=== PATIENT | female | born 1965 | race Caucasian/White ===

== ENCOUNTER 2016-05-06 20:01 | Emergency (ER) | payer BC ==
--- NOTE | 2016-05-06 20:23 | Emergency Department Record ---
History of Present Illness - General Chief Complaint: Headache Migraine Stated Complaint: PARISI Time Seen by Provider: 05/06/16 20:14 Source: Patient Mode of Arrival: Ambulatory Limitations: No limitations - History of Present Illness Initial Comments: 51 yo female presents to ED with a CC of a "migraine headache" for the past several days. Patient reports associated nausea and vomiting symptoms, reports that she has not taken anything at home for her pain symptoms (has [place], but reports it won't work when her pain gets to "this point"). Patient reports that recently underwent revision of her neuro-stimulator that she uses for her chronic migraine headaches (February 2016). Patient denies fevers, chills, but does report non-productive cough and body aches. Patient denies neck pain symptoms as well. MD Complaint: Headache Onset/Timin -: Days(s) Onset Description: Gradual Location: Diffuse Severity scale (1-10): 10 Quality: Similar to previous headaches Consistency: Constant Improves With: Cold therapy, Rest Worsens With: None Associated Symptoms: Nausea Treatments Prior to Arrival: None - Related Data Home Medications Medication Instructions Recorded Confirmed Last Taken Estradiol/Norethindrone Acet 05/06/16 Unknown [Estradiol-Noreth 1-0.5 mg Tab] Fluticasone Propionate [Flonase] 05/06/16 Unknown Hydrocodone/Acetaminophen 05/06/16 05/06/16 Unknown [Hydrocodon-Acetaminophn 10-325] Ondansetron HCl [Ondansetron HCl] 05/06/16 Unknown Venlafaxine HCl [Effexor Xr] 05/06/16 Unknown Allergies Allergy/AdvReac Type Severity Reaction Status Date / Time Sulfa (Sulfonamide Allergy HIVES Verified 05/06/16 20:06 Antibiotics) Travel Screening - Travel/Exposure Within Last 30 Days Have you traveled within the last 30 days?: No - Travel/Exposure Within Last Year Have you traveled outside the [place] in the last year?: No - Additonal Travel Details Have you been exposed to anyone with a communicable illness?: No - Travel Symptoms Symptom Screening: None Review of Systems Constitutional: Reports: Malaise. Denies: Chills, Fever, Night sweats Eyes: Denies: Eye discharge, Eye pain ENT: Reports: Congestion. Denies: Ear pain, Epistaxis, Throat pain Respiratory: Reports: Cough. Denies: Dyspnea Cardiovascular: Denies: Chest pain, Dyspnea on exertion Endocrine: Denies: Fatigue, Heat or cold intolerance Gastrointestinal: Reports: Nausea, Vomiting. Denies: Abdominal pain Musculoskeletal: Denies: Arthralgia, Back pain, Neck pain Skin: Denies: Bruising, Change in color Neurological: Reports: Headache. Denies: Abnormal gait, Confusion, Seizure Psychiatric: Denies: Anxiety Hematological/Lymphatic: Denies: Anemia, Blood Clots Past Medical History - SOCIAL HISTORY Smoking Status: Never smoker Alcohol Use: Rare Drug Use: None - RESPIRATORY Hx Respiratory Disorders: No - CARDIOVASCULAR Hx Cardio Disorders: No - NEURO Hx Neuro Disorders: Yes Hx Headaches: Yes - GI Hx GI Disorders: Yes Hx Reflux: Yes - Hx Genitourinary Disorders: No - ENDOCRINE Hx Endocrine Disorders: No - MUSCULOSKELETAL Hx Musculoskeletal Disorders: Yes - PSYCH Hx Psych Problems: No - HEMATOLOGY/ONCOLOGY Hx Hematology/Oncology Disorders: No Family Medical History Any Significant Family History?: No Physical Exam - General General Appearance: Alert, Oriented x3, Cooperative, Mild distress Limitations: No limitations - Head Head exam: Atraumatic, Normocephalic, Normal inspection Head exam detail: negative: Abrasion, Contusion, Hood's sign, General tenderness, Hematoma, Laceration - Eye Eye exam: Normal appearance. negative: Conjunctival injection, Periorbital swelling, Periorbital tenderness, Scleral icterus - ENT Ear exam: negative: Auricular hematoma, Auricular trauma Nasal Exam: negative: Active bleeding, Discharge, Dried blood, Foreign body Mouth exam: negative: Drooling, Laceration, Muffled voice, Tongue elevation - Neck Neck exam: Normal inspection. negative: Meningismus, Tenderness - Respiratory Respiratory exam: Normal lung sounds bilaterally. negative: Respiratory distress, Rhonchi, Stridor, Wheezes - Cardiovascular Cardiovascular Exam: Regular rate, Normal rhythm, Normal heart sounds - GI/Abdominal GI/Abdominal exam: Soft. negative: Rebound, Rigid, Tenderness - Rectal Rectal exam: Deferred - exam: Deferred - Extremities Extremities exam: Normal inspection. negative: Calf tenderness, Pedal edema, Tenderness - Back Back exam: Reports: Normal inspection. Denies: CVA tenderness (R), CVA tenderness (L), Paraspinal tenderness - Neurological Neurological exam: Alert, Normal gait, Oriented X3 - Psychiatric Psychiatric exam: Normal affect, Normal mood - Skin Skin exam: Normal color. negative: Abrasion Type of lesion: negative: abrasion Course Vital Signs 05/06/16 20:05 Temperature 99.4 F Pulse Rate 107 H Respiratory 18 Rate Blood Pressure 160/91 Pulse Ox 97 - Reevaluation(s) Reevaluation #1: 05/06/16 21:24 Patient updated on influenza results, reports that her symptoms are improved ( down to 4/10). Patient has no meningeal signs on examination, and appears stable for discharge at this time. Disposition Disposition: Discharge Clinical Impression: Headache Qualifiers: Headache type: unspecified Headache chronicity pattern: acute headache Intractability: not intractable Qualified Code(s): R51 - Headache Disposition: Home, Self-Care Condition: (2) Stable Instructions: Acute Headache (ED) Additional Instructions: Return to ED if your symptoms worsen or if you have any concerns. Follow-up with your family doctor in 3-5 days as directed. Forms: Patient Portal Access Time of Disposition: 21:26
[2016-05-06] MEDS: 0.9 % SODIUM CHLORIDE 1000ML 1,000 ML IV SCH (20:32)
[2016-05-06] MEDS: DIPHENHYDRAMINE HCL IV 50 MG/ML VIAL IVP ONE (20:33)
[2016-05-06] MEDS: METOCLOPRAMIDE HCL 10 MG/2 ML VIAL IVP ONE (20:34)
[2016-05-06] MEDS: KETOROLAC 30 MG/ML VIAL IVP ONE (20:36)
[2016-05-06 20:59] LABS: INFLUENZA A NEGATIVE (NEGATIVE); INFLUENZA B NEGATIVE (NEGATIVE)
== END 2016-05-06 22:10 | disposition home or self-care (01) ==
LOC: ER 20:01
DX: R51 Headache (principal); R11.2 Nausea with vomiting, unspecified
CPT/HCPCS: 99284 ×2; 96374; 96375; 96361; 87400; J1885; J1200; J2765; J7030

== ENCOUNTER 2016-07-05 19:19 | Emergency (ER) | payer BC ==
[2016-07-05] MEDS ORDERED: METOCLOPRAMIDE HCL 10 MG/2 ML VIAL IVP ONE (19:44)
[2016-07-05] MEDS ORDERED: KETOROLAC 30 MG/ML VIAL IVP ONE (19:44)
[2016-07-05] MEDS ORDERED: DIPHENHYDRAMINE HCL IV 50 MG/ML VIAL IVP ONE (19:44)
[2016-07-05] MEDS ORDERED: 0.9 % SODIUM CHLORIDE 1000ML 1,000 ML IV SCH (19:45)
--- NOTE | 2016-07-05 19:53 | Emergency Department Record ---
History of Present Illness - General Chief Complaint: Headache Migraine Stated Complaint: PARISI Time Seen by Provider: 07/05/16 19:44 Source: Patient Mode of Arrival: Ambulatory Limitations: No limitations - History of Present Illness Initial Comments: 51 yo female presents to ED with a 24-hours history of migraine-type headache. Patient reports a history of previous episodes previously, has taken Tramadol x 2 for her pain symptoms at home which have not helped much. Patient reports nausea and vomiting started this afternoon, denies fevers, chills, or neck pain symptoms. MD Complaint: Headache Onset/Timin -: Days(s) Onset Description: Gradual Location: Diffuse Severity: Severe Severity scale (1-10): 10 Quality: Throbbing Consistency: Constant Improves With: Nothing Worsens With: Light Associated Symptoms: Nausea, Vomiting - Related Data Home Medications Medication Instructions Recorded Confirmed Last Taken Estradiol/Norethindrone Acet 1 tab PO DAILY 05/06/16 07/05/16 Unknown [Estradiol-Noreth 1-0.5 mg Tab] Fluticasone Propionate [Flonase] 1 spray NS DAILY 05/06/16 07/05/16 Unknown Ondansetron HCl [Ondansetron HCl] 8 mg PO DAILY 05/06/16 07/05/16 Unknown Tramadol HCl [Tramadol HCl ER] 200 mg PO DAILY 07/05/16 07/05/16 Unknown Allergies Allergy/AdvReac Type Severity Reaction Status Date / Time Sulfa (Sulfonamide Allergy HIVES Verified 05/06/16 20:06 Antibiotics) Travel Screening - Travel/Exposure Within Last 30 Days Have you traveled within the last 30 days?: No Review of Systems Constitutional: Denies: Chills, Fever, Malaise, Night sweats Eyes: Reports: Photophobia. Denies: Eye discharge, Eye pain ENT: Denies: Congestion, Ear pain, Epistaxis Respiratory: Denies: Cough, Dyspnea Cardiovascular: Denies: Chest pain, Dyspnea on exertion Endocrine: Denies: Fatigue, Heat or cold intolerance Gastrointestinal: Reports: Nausea, Vomiting. Denies: Abdominal pain, Constipation Genitourinary: Denies: Dysuria, Frequency Musculoskeletal: Denies: Arthralgia, Back pain, Gout, Joint swelling Skin: Denies: Bruising, Change in color Neurological: Reports: Headache. Denies: Abnormal gait, Confusion, Seizure Psychiatric: Denies: Anxiety Hematological/Lymphatic: Denies: Anemia, Blood Clots Past Medical History - SOCIAL HISTORY Smoking Status: Never smoker Alcohol Use: None Drug Use: None - RESPIRATORY Hx Respiratory Disorders: No - CARDIOVASCULAR Hx Cardio Disorders: No - NEURO Hx Neuro Disorders: Yes Hx Headaches: Yes - GI Hx GI Disorders: Yes Hx Reflux: Yes - Hx Genitourinary Disorders: No - ENDOCRINE Hx Endocrine Disorders: No - MUSCULOSKELETAL Hx Musculoskeletal Disorders: Yes - PSYCH Hx Psych Problems: No - HEMATOLOGY/ONCOLOGY Hx Hematology/Oncology Disorders: No Family Medical History Any Significant Family History?: No Physical Exam - General General Appearance: Alert, Oriented x3, Cooperative, Moderate distress Limitations: No limitations - Head Head exam: Atraumatic, Normocephalic, Normal inspection Head exam detail: negative: Abrasion, Contusion, Hood's sign, General tenderness, Hematoma, Laceration - Eye Eye exam: Normal appearance. negative: Conjunctival injection, Periorbital swelling, Periorbital tenderness, Scleral icterus - ENT Ear exam: negative: Auricular hematoma, Auricular trauma Nasal Exam: negative: Active bleeding, Discharge, Dried blood, Foreign body Mouth exam: negative: Drooling, Laceration, Muffled voice, Tongue elevation - Neck Neck exam: Normal inspection. negative: Meningismus, Tenderness - Respiratory Respiratory exam: Normal lung sounds bilaterally. negative: Rales, Respiratory distress, Rhonchi, Stridor - Cardiovascular Cardiovascular Exam: Regular rate, Normal rhythm, Normal heart sounds - GI/Abdominal GI/Abdominal exam: Soft. negative: Rebound, Rigid, Tenderness - Rectal Rectal exam: Deferred - exam: Deferred - Extremities Extremities exam: Normal inspection. negative: Calf tenderness, Pedal edema, Tenderness - Back Back exam: Denies: CVA tenderness (R), CVA tenderness (L) - Neurological Neurological exam: Alert, Normal gait, Oriented X3 - Psychiatric Psychiatric exam: Normal affect, Normal mood - Skin Skin exam: Normal color. negative: Abrasion Type of lesion: negative: abrasion Course Vital Signs 07/05/16 19:40 Temperature 97.6 F Pulse Rate 87 Respiratory 18 Rate Blood Pressure 105/82 Pulse Ox 99 - Reevaluation(s) Reevaluation #1: 07/05/16 20:49 Patient reassessed, reports that her pain symptoms are down to 2/10 and appears stable for discharge at this time. Disposition Disposition: Discharge Clinical Impression: Headache Qualifiers: Headache type: unspecified Headache chronicity pattern: acute headache Intractability: not intractable Qualified Code(s): R51 - Headache Disposition: Home, Self-Care Condition: (2) Stable Instructions: Acute Headache (ED) Additional Instructions: Return to ED if your symptoms worsen or if you have any concerns. Follow-up with your family doctor in 3-5 days as directed. Forms: Patient Portal Access Time of Disposition: 20:50
== END 2016-07-05 21:32 | disposition home or self-care (01) ==
LOC: ER 19:19
DX: R51 Headache (principal); R11.2 Nausea with vomiting, unspecified
CPT/HCPCS: 99284 ×2; 96374; 96375; J1885; J1200; J2765; J7030

== ENCOUNTER 2016-10-11 12:30 | Emergency (ER) | payer BC ==
[2016-10-11] MEDS ORDERED: METOCLOPRAMIDE HCL 10 MG/2 ML VIAL IVP ONE (12:49)
[2016-10-11] MEDS ORDERED: KETOROLAC 30 MG/ML VIAL IVP ONE (12:49)
[2016-10-11] MEDS ORDERED: DIPHENHYDRAMINE HCL IV 50 MG/ML VIAL IVP ONE (12:49)
--- NOTE | 2016-10-11 12:54 | Emergency Department Record ---
History of Present Illness - General Chief Complaint: Headache Migraine Stated Complaint: HEADACHE Time Seen by Provider: 10/11/16 12:31 Source: Patient Mode of Arrival: Ambulatory Limitations: No limitations - History of Present Illness Initial Comments: 51 yo female presents to ED with a CC of a "migraine headache" for the past 10 days. Patient reports chronic headaches that are improved as the patient is now taking Tramadol 200 mcg daily for prevention. Patient reports that her headache symptoms are similar to previous, denies fevers, chills, or neck pain symptoms. MD Complaint: Headache Onset/Timin -: Days(s) Onset Description: Gradual Location: Facial, Temporal Severity: Moderate Severity scale (1-10): 9 Quality: Throbbing Consistency: Constant Improves With: Nothing Worsens With: Light, Noise Associated Symptoms: Photophobia, Sensitivity to sound Treatments Prior to Arrival: Migraine medication, Prescription analgesic - Related Data Home Medications Medication Instructions Recorded Confirmed Last Taken Estradiol/Norethindrone Acet 1 tab PO DAILY 05/06/16 10/11/16 10/11/16 [Estradiol-Noreth 1-0.5 mg Tab] Fluticasone Propionate [Flonase] 1 spray NS DAILY 05/06/16 10/11/16 10/11/16 Ondansetron HCl [Ondansetron HCl] 8 mg PO DAILY 05/06/16 10/11/16 10/11/16 Tramadol HCl [Tramadol HCl ER] 200 mg PO DAILY 07/05/16 10/11/16 10/11/16 Clobetasol Propionate/Emoll 1 apply TOP ASDIR 10/11/16 10/11/16 Unknown [Clobetasol Emollient 0.05% Crm] Ketorolac Tromethamine 10 mg PO ASDIR 10/11/16 10/11/16 Unknown Melatonin 10 mg PO QHS 10/11/16 10/11/16 10/10/16 Allergies Allergy/AdvReac Type Severity Reaction Status Date / Time Sulfa (Sulfonamide Allergy HIVES Verified 10/11/16 12:37 Antibiotics) Travel Screening - Travel/Exposure Within Last 30 Days Have you traveled within the last 30 days?: No - Travel/Exposure Within Last Year Have you traveled outside the [place] in the last year?: Yes Location Detail:: [place] in July - Additonal Travel Details Have you been exposed to anyone with a communicable illness?: No - Travel Symptoms Symptom Screening: None Review of Systems Constitutional: Denies: Chills, Fever, Malaise, Night sweats Eyes: Denies: Eye discharge, Eye pain ENT: Denies: Congestion, Ear pain, Epistaxis Respiratory: Denies: Cough, Dyspnea Cardiovascular: Denies: Dyspnea on exertion, Edema Endocrine: Denies: Fatigue, Heat or cold intolerance Gastrointestinal: Denies: Abdominal pain, Vomiting Genitourinary: Denies: Incontinence, Retention Musculoskeletal: Denies: Arthralgia, Back pain Skin: Denies: Bruising, Change in color Neurological: Reports: Headache. Denies: Abnormal gait, Numbness Psychiatric: Denies: Anxiety Hematological/Lymphatic: Denies: Anemia, Blood Clots Past Medical History - SOCIAL HISTORY Smoking Status: Never smoker Alcohol Use: Rare Drug Use: None - RESPIRATORY Hx Respiratory Disorders: No - CARDIOVASCULAR Hx Cardio Disorders: No - NEURO Hx Neuro Disorders: Yes Hx Headaches: Yes - GI Hx GI Disorders: Yes Hx Reflux: Yes - Hx Genitourinary Disorders: No - ENDOCRINE Hx Endocrine Disorders: No - MUSCULOSKELETAL Hx Musculoskeletal Disorders: Yes - PSYCH Hx Psych Problems: No - HEMATOLOGY/ONCOLOGY Hx Hematology/Oncology Disorders: No Family Medical History Any Significant Family History?: No Physical Exam - General General Appearance: Alert, Oriented x3, Cooperative, Moderate distress Limitations: No limitations - Head Head exam: Atraumatic, Normocephalic, Normal inspection Head exam detail: negative: Abrasion, Contusion, Hood's sign, General tenderness, Hematoma, Laceration - Eye Eye exam: Normal appearance. negative: Conjunctival injection, Periorbital swelling, Periorbital tenderness, Scleral icterus - ENT Ear exam: negative: Auricular hematoma, Auricular trauma Nasal Exam: negative: Active bleeding, Discharge, Dried blood, Foreign body Mouth exam: negative: Drooling, Laceration, Muffled voice, Tongue elevation - Neck Neck exam: Normal inspection. negative: Meningismus, Tenderness - Respiratory Respiratory exam: Normal lung sounds bilaterally. negative: Respiratory distress, Rhonchi, Stridor, Wheezes - Cardiovascular Cardiovascular Exam: Regular rate, Normal rhythm, Normal heart sounds - GI/Abdominal GI/Abdominal exam: Soft. negative: Rebound, Rigid, Tenderness - Rectal Rectal exam: Deferred - exam: Deferred - Extremities Extremities exam: negative: Calf tenderness, Tenderness - Back Back exam: Denies: CVA tenderness (R), CVA tenderness (L) - Neurological Neurological exam: Alert, Normal gait, Oriented X3 - Psychiatric Psychiatric exam: Normal affect, Normal mood - Skin Skin exam: Normal color. negative: Abrasion Type of lesion: negative: abrasion Course Vital Signs 10/11/16 12:42 Temperature 98.5 F Pulse Rate 103 H Respiratory 20 Rate Blood Pressure 168/104 Pulse Ox 99 - Reevaluation(s) Reevaluation #1: 10/11/16 14:29 Patient reassessed and reports that her pain symptoms are improved to 4/10 at this time. Patient appears stable for discharge at this time. Disposition Disposition: Discharge Clinical Impression: Acute headache Qualifiers: Headache type: unspecified Intractability: not intractable Qualified Code(s): R51 - Headache Disposition: Home, Self-Care Condition: (2) Stable Instructions: Acute Headache (ED) Additional Instructions: Return to ED if your symptoms worsen or if you have any concerns. Follow-up with your family doctor in 3-5 days as directed. Forms: Patient Portal Access Time of Disposition: 14:30
[2016-10-11] MEDS ORDERED: 0.9 % SODIUM CHLORIDE 1000ML 1,000 ML IV SCH (13:00)
== END 2016-10-11 14:57 | disposition home or self-care (01) ==
LOC: ER 12:30
DX: R51 Headache (principal); H53.149 Visual discomfort, unspecified
CPT/HCPCS: 99284 ×2; 96374; 96375; J1885; J1200; J2765; J7030

== ENCOUNTER 2018-12-10 18:07 | Emergency (ER) | payer BC ==
[2018-12-10] MEDS ORDERED: KETOROLAC 30 MG/ML VIAL IVP ONE (18:25)
[2018-12-10] MEDS ORDERED: DIPHENHYDRAMINE HCL 50 MG/ML VIAL IVP ONE (18:25)
[2018-12-10] MEDS ORDERED: 0.9 % SODIUM CHLORIDE 1,000 ML BAG IV ONE (18:25)
[2018-12-10] MEDS ORDERED: METOCLOPRAMIDE HCL 10 MG/2 ML VIAL IVP ONE (18:25)
--- NOTE | 2018-12-10 18:27 | Emergency Department Record ---
History of Present Illness - General Chief Complaint: Headache Migraine Stated Complaint: MIGRAINE Time Seen by Provider: 12/10/18 18:09 Source: Patient, RN notes reviewed Mode of Arrival: Ambulatory - History of Present Illness Initial Comments: patient has a migraine Dr at [facility] Scales and this headache started 2 weeks ago. Also has abdomenal pain and no vomiting or diarrhea and the migraine is her typical. epigastric abdominal pain but her migraine is the biggest pro blem. MD Complaint: "Migraine" Onset Description: Gradual Location: Diffuse Severity: Moderate Severity scale (1-10): 8 Quality: Different than previous headaches Consistency: Constant Improves With: Nothing Worsens With: None Context: Other Associated Symptoms: Other Treatments Prior to Arrival: None - Related Data Home Medications Medication Instructions Recorded Confirmed Last Taken Alprazolam [Xanax] 0.5 mg PO ASDIR 12/10/18 12/10/18 Unknown Bupropion HCl [Wellbutrin Xl] 300 mg PO DAILY 12/10/18 12/10/18 Unknown Butalb/Acetaminophen/Caffeine 1 each PO ASDIR 12/10/18 12/10/18 Unknown [Fioricet] Erenumab-Aooe [Aimovig 140 mg SQ ASDIR 12/10/18 12/10/18 Unknown Autoinjector] Hydroxyzine HCl [Atarax] 25 mg PO ASDIR 12/10/18 12/10/18 Unknown Methocarbamol [Robaxin] 500 mg PO TID 12/10/18 12/10/18 Unknown Omeprazole 20 mg PO DAILY 12/10/18 12/10/18 Unknown Promethazine HCl [Phenergan] 25 mg PO ASDIR 12/10/18 12/10/18 Unknown Venlafaxine HCl [Effexor Xr] 300 mg PO DAILY 12/10/18 12/10/18 Unknown Allergies Allergy/AdvReac Type Severity Reaction Status Date / Time Sulfa (Sulfonamide Allergy HIVES Unverified 01/28/17 12:49 Antibiotics) Travel Screening - Travel/Exposure Within Last 30 Days Have you traveled within the last 30 days?: No Review of Systems Reviewed: No additional complaints except as noted below Constitutional: Reports: As per HPI. Denies: Chills, Fever, Malaise, Night sweats, Weakness, Weight change Eyes: Reports: As per HPI. Denies: Eye discharge, Eye pain, Photophobia, Vision change ENT: Reports: As per HPI. Denies: Congestion, Dental pain, Ear pain, Epistaxis, Hearing loss, Throat pain Respiratory: Reports: As per HPI. Denies: Cough, Dyspnea, Hemoptysis, Stridor, Wheezes Cardiovascular: Reports: As per HPI. Denies: Arrhythmia, Chest pain, Dyspnea on exertion, Edema, Murmurs, Orthopnea, Palpitations, Paroxysmal nocturnal dyspnea, Rheumatic Fever, Syncope Endocrine: Reports: As per HPI. Denies: Fatigue, Heat or cold intolerance, Polydipsia, Polyuria Gastrointestinal: Reports: As per HPI, Abdominal pain. Denies: Constipation, Diarrhea, Hematemesis, Hematochezia, Melena, Nausea, Vomiting Genitourinary: Reports: As per HPI. Denies: Abnormal menses, Discharge, Dyspareunia, Dysuria, Frequency, Hematuria, Incontinence, Retention, Urgency Musculoskeletal: Reports: As per HPI. Denies: Arthralgia, Back pain, Gout, Joint swelling, Myalgia, Neck pain Skin: Reports: As per HPI. Denies: Bruising, Change in color, Change in hair/nails, Lesions, Pruritus, Rash Neurological: Reports: As per HPI. Denies: Abnormal gait, Confusion, Headache, Numbness, Paresthesias, Seizure, Tingling, Tremors, Vertigo, Weakness Psychiatric: Reports: As per HPI. Denies: Anxiety, Auditory hallucinations, Depression, Homicidal thoughts, Suicidal thoughts, Visual hallucinations Hematological/Lymphatic: Reports: As per HPI. Denies: Anemia, Blood Clots, Easy bleeding, Easy bruising, Swollen glands Past Medical History - SOCIAL HISTORY Smoking Status: Never smoker - RESPIRATORY Hx Respiratory Disorders: No - CARDIOVASCULAR Hx Cardio Disorders: No - NEURO Hx Neuro Disorders: Yes Hx Headaches: Yes - GI Hx GI Disorders: Yes Hx Reflux: Yes - Hx Genitourinary Disorders: No - ENDOCRINE Hx Endocrine Disorders: No - MUSCULOSKELETAL Hx Musculoskeletal Disorders: Yes - PSYCH Hx Psych Problems: No - HEMATOLOGY/ONCOLOGY Hx Hematology/Oncology Disorders: No Family Medical History Any Significant Family History?: No Physical Exam - General General Appearance: Alert, Oriented x3, Cooperative, No acute distress - Head Head exam: Normal inspection - Eye Eye exam: Normal appearance, PERRL Pupils: Normal accommodation - ENT ENT exam: Normal exam, Mucous membranes moist, Normal external ear exam, Normal orophraynx, TM's normal bilaterally Ear exam: Normal external inspection. negative: External canal tenderness Nasal Exam: Normal inspection. negative: Discharge, Sinus tenderness Mouth exam: Normal external inspection, Tongue normal Teeth exam: Normal inspection. negative: Dental caries Throat exam: Normal inspection. negative: Tonsillar erythema, Tonsillar exudate - Neck Neck exam: Normal inspection, Full ROM. negative: Tenderness - Respiratory Respiratory exam: Normal lung sounds bilaterally. negative: Respiratory distress - Cardiovascular Cardiovascular Exam: Regular rate, Normal rhythm, Normal heart sounds - GI/Abdominal GI/Abdominal exam: Soft, Normal bowel sounds, Tenderness (mild discomfort on pa lpation). negative: Guarding, Rebound, Rigid - Rectal Rectal exam: Deferred - exam: Deferred - Extremities Extremities exam: Normal inspection, Full ROM, Normal capillary refill. negative: Tenderness - Back Back exam: Reports: Normal inspection, Full ROM. Denies: Muscle spasm, Rash noted, Tenderness - Neurological Neurological exam: Alert, Normal gait, Oriented X3, Reflexes normal - Psychiatric Psychiatric exam: Normal affect, Normal mood - Skin Skin exam: Dry, Intact, Normal color, Warm Course Vital Signs 12/10/18 18:10 Temperature 98.2 F Pulse Rate 111 H Respiratory 18 Rate Blood Pressure 158/99 Pulse Ox 96 - Reevaluation(s) Reevaluation #1: feeling better 12/10/18 19:22 Medical Decision Making - Lab Data Result diagrams: 12/10/18 18:50 12/10/18 18:50 Disposition Clinical Impression: Migraine Qualifiers: Migraine type: without aura Status migrainosus presence: without status migrainosus Intractability: not intractable Qualified Code(s): G43.009 - Migraine without aura, not intractable, without status migrainosus Abdominal pain Qualifiers: Abdominal location: epigastric Qualified Code(s): R10.13 - Epigastric pain Disposition: Home, Self-Care Condition: (1) Good Instructions: Migraine Headache (ED), Abdominal Pain (ED), Gastritis (ED) Additional Instructions: follow up with her headache Dr at [facility] in one week follow up with family Dr in 2 days clear liquids and slowly increase diet increase omeprazole to twice a day use tums three pills after meals and bed time Forms: Patient Portal Access Time of Disposition: 18:46 Quality - Quality Measures Quality Measures: Headache (All Ages) - Headache: Neuroimaging Quality Measure: Measure #419: Overuse of Neuroimaging ICD10 Codes Entered: Yes Neurological Exam: Patient had a normal neurological exam. [G9535] Headache: Use of Neuroimaging: < CTA, CT, MRA or MRI was NOT ordered > [G9534] - Blood Pressure Screening Does Patient Have Any of the Following: No Blood Pressure Classification: Hypertensive Reading Systolic Measurement: 158 Diastolic Measurement: 99 Screening for High Blood Pressure: < First Hypertensive BP, F/U Documented > [G8950] First Hypertensive Follow-up Interventions: Referral to alternative/primary care provider.
[2018-12-10] MEDS ORDERED: PANTOPRAZOLE SODIUM 40 MG TABLET PO ONE (18:29)
[2018-12-10 19:06] LABS: ABSOLUTE NEUTROPHIL COUNT 7.37; BASO % 0.1 % (0-6); EOS % 0.3 % (0-6); GRAN % 74.3 % (47-80); HEMATOCRIT 43.7 % (35.0-47.0); HEMOGLOBIN 14.4 gm/dl (11.6-16.0); LYMPH % 18.9 % (16-45); MEAN CELL VOLUME 89.2 fl (81-97); MEAN CORPUSCULAR HEMOGLOBIN 29.4 pg (27-33); MEAN PLATELET VOLUME 8.3 fl (7.4-10.4); MONO % 6.4 % (0-9); PLATELET COUNT 388 K/uL (130-400); RED CELL DISTRIBUTION WIDTH 13.7 % (11.5-14.5); WHITE BLOOD COUNT W/O DIFF 9.9 K/uL (4.2-12.2)
[2018-12-10 19:17] LABS: BLOOD UREA NITROGEN 16 mg/dL (6-20)
[2018-12-10 19:18] LABS: CREATININE 0.7 mg/dL (0.5-0.9); EST GLOMERULAR FILTRATION RATE > 60 mL/min; LIPASE 39 U/L (13-60); TOTAL PROTEIN 7.2 g/dL (6.6-8.7)
[2018-12-10 19:20] LABS: GLUCOSE,RANDOM 99 mg/dL (74-109)
[2018-12-10 19:23] LABS: ALBUMIN 4.6 g/dL (4.0-5.0); ALKALINE PHOSPHATASE 93 U/L (35-104); ALT/SGPT 19 U/L (<33); AST/SGOT 17 U/L (10.0-35.0)
[2018-12-10 19:31] LABS: BILIRUBIN,DIRECT < 0.2 mg/dL (0-0.3)
== END 2018-12-10 19:31 | disposition home or self-care (01) ==
LOC: ER 18:07
DX: G43.909 Migraine, unspecified, not intractable, without status migrainosus (principal); R10.13 Epigastric pain
CPT/HCPCS: 99285 ×2; 96374; 96375; 96361; 83690; 85025; 80076; 80048; J1885; J1200; J2765; J7030

== ENCOUNTER 2018-12-21 16:11 | Emergency (ER) | payer BC ==
[2018-12-21] MEDS ORDERED: KETOROLAC 30 MG/ML VIAL IVP ONE (17:03)
[2018-12-21] MEDS ORDERED: DIPHENHYDRAMINE HCL 50 MG/ML VIAL IVP ONE (17:03)
[2018-12-21] MEDS ORDERED: METOCLOPRAMIDE HCL 10 MG/2 ML VIAL IVP ONE (17:03)
[2018-12-21] MEDS ORDERED: 0.9 % SODIUM CHLORIDE 1,000 ML BAG IV ONE (17:03)
--- NOTE | 2018-12-21 17:08 | Emergency Department Record ---
History of Present Illness - General Chief Complaint: Headache Migraine Stated Complaint: MIGRAINE Time Seen by Provider: 12/21/18 17:00 Source: Patient, Family Mode of Arrival: Ambulatory Limitations: No limitations - History of Present Illness Initial Comments: The patient is here due to a worsening migraine PARISI over the last few days. She has a LONG hx of similar PARISI's and is never pain free. Now the pain is worsening gradually. It feels like shocks to her brain associated with nausea but no vomiting. She does have mild blurred vision and photophobia. The patient does have a LONG hx of similar PARISI's exactly like this and does have a PARISI specialist at [facility] [place]. Complaint: Headache Onset/Timin -: Days(s) Onset Description: Gradual Severity scale (1-10): 8 Quality: Similar to previous headaches Improves With: Nothing Worsens With: None Associated Symptoms: Nausea, Photophobia, Sensitivity to sound Treatments Prior to Arrival: Migraine medication - Related Data Allergies Allergy/AdvReac Type Severity Reaction Status Date / Time Sulfa (Sulfonamide Allergy HIVES Unverified 01/28/17 12:49 Antibiotics) Travel Screening - Travel/Exposure Within Last 30 Days Have you traveled within the last 30 days?: No - Travel/Exposure Within Last Year Have you traveled outside the [place] in the last year?: No - Additonal Travel Details Have you been exposed to anyone with a communicable illness?: No - Travel Symptoms Symptom Screening: Headache Review of Systems Constitutional: Denies: Chills, Fever Eyes: Denies: Eye discharge ENT: Denies: Congestion Respiratory: Denies: Cough, Dyspnea Past Medical History - SOCIAL HISTORY Smoking Status: Never smoker Alcohol Use: None Drug Use: None - RESPIRATORY Hx Respiratory Disorders: No - CARDIOVASCULAR Hx Cardio Disorders: No - NEURO Hx Neuro Disorders: Yes Hx Headaches: Yes - GI Hx GI Disorders: Yes Hx Reflux: Yes - Hx Genitourinary Disorders: No - ENDOCRINE Hx Endocrine Disorders: No - MUSCULOSKELETAL Hx Musculoskeletal Disorders: Yes - PSYCH Hx Psych Problems: No - HEMATOLOGY/ONCOLOGY Hx Hematology/Oncology Disorders: No Family Medical History Any Significant Family History?: No Physical Exam - General General Appearance: Alert, Oriented x3, Cooperative, Mild distress - Head Head exam: Atraumatic, Normocephalic, Normal inspection - Eye Eye exam: Normal appearance, PERRL. negative: Conjunctival injection, Periorbital swelling, Periorbital tenderness - ENT Throat exam: Normal inspection. negative: Tonsillar erythema, Tonsillar exudate - Neck Neck exam: Normal inspection, Full ROM. negative: Meningismus (the neck is very supple.), Tenderness - Respiratory Respiratory exam: Normal lung sounds bilaterally. negative: Respiratory distress - Cardiovascular Cardiovascular Exam: Regular rate, Normal rhythm, Normal heart sounds - GI/Abdominal GI/Abdominal exam: Soft, Normal bowel sounds. negative: Tenderness - Extremities Extremities exam: Normal inspection, Full ROM, Normal capillary refill. negative: Tenderness - Neurological Neurological exam: Alert, Normal gait, Oriented X3, Other (Neg Drift and [place]om[place].). negative: Abnormal gait, Altered, Motor sensory deficit Course Vital Signs 12/21/18 16:36 Temperature 98.4 F Pulse Rate 96 H Respiratory 20 Rate Blood Pressure 147/92 Pulse Ox 98 - Reevaluation(s) Reevaluation #1: The patient is doing better at this time. Her pain is now down to her chronic pain level. She feels ready for home. 12/21/18 18:32 Disposition Disposition: Discharge Clinical Impression: Migraine Qualifiers: Migraine type: unspecified Status migrainosus presence: without status migrainosus Intractability: not intractable Qualified Code(s): G43.909 - Migraine, unspecified, not intractable, without status migrainosus Disposition: Home, Self-Care Condition: (2) Stable Instructions: Migraine Headache (ED) Additional Instructions: Please continue your regular medicines and please see your Headache Specialist later this week for recheck. Return to the ER for any worsening symptoms. Forms: Patient Portal Access Time of Disposition: 18:34 Quality - Quality Measures Quality Measures: Headache (All Ages) - Headache: Neuroimaging Quality Measure: Measure #419: Overuse of Neuroimaging ICD10 Codes Entered: Yes View Detail: Yes Neurological Exam: Patient had a normal neurological exam. [G9535] Headache: Use of Neuroimaging: < CTA, CT, MRA or MRI was NOT ordered > [G9534] - Blood Pressure Screening View Details: Yes Does Patient Have Any of the Following: No Blood Pressure Classification: Hypertensive Reading Systolic Measurement: 147 Diastolic Measurement: 92 Screening for High Blood Pressure: < First Hypertensive BP, F/U Documented > [G8950] First Hypertensive Follow-up Interventions: Referral to alternative/primary care provider.
[2018-12-21] MEDS ORDERED: ACETAMINOPHEN 1,000 MG/100 ML BTL IVPB ONE (18:01)
== END 2018-12-21 18:44 | disposition home or self-care (01) ==
LOC: ER 16:11
DX: G43.909 Migraine, unspecified, not intractable, without status migrainosus (principal); R11.0 Nausea; H53.149 Visual discomfort, unspecified
CPT/HCPCS: 96365; 96375; 99284; J1200; J1885; J2765; J7030